=== PATIENT | male | born 1930 | race Caucasian/White ===

== ENCOUNTER 2016-05-12 07:30 | Emergency (ER) | payer MEDICARE, BC ==
[~2016-05-12] VITALS: Ht 167.6 cm; Wt 87.7 kg
[~2016-05-12 07:30] MED LIST: ALFUZOSIN HYDRO10 MG PO; LIPITOR 10MG10 MG PO; LISINOPRIL20 MG PO; PRILOSEC 20MG20 MG PO; UROXATRAL10 MG PO
[2016-05-12 07:31] VITALS: TEMP 96.8
[2016-05-12 07:50] LABS: HEMATOCRIT 46.2 % (42.0-52.0); HEMOGLOBIN 15.1 g/dl (13.5-18.0); MEAN CELL VOLUME 97 fl (80.0-100.0); MEAN CORPUSCULAR HEMOGLOBIN 32 pg (27.0-31.0); MEAN CORPUSCULAR HGB CONC 33 g/dl (33.0-37.0); PLATELET COUNT 514 K/mm3 (130-400); RED BLOOD COUNT 4.78 M/mm3 (4.20-5.60); REDCELL DISTRIBUTION WIDTH-CV 12.4 % (11.5-14.5)
[2016-05-12 07:51] LABS: INR 1.2 (0.8-3.0); PROTHROMBIN TIME 13.5 SECONDS (9.7-12.8)
[2016-05-12 07:54] LABS: PARTIAL THROMBOPLASTIN TIME 18.6 SECONDS (26.0-37.0)
[2016-05-12 07:57] LABS: ADD PATHOLOGY DIFF REVIEW NO; WHITE BLOOD COUNT 24.1 K/mm3 (4.8-10.8)
[2016-05-12 08:00] LABS: ADJUSTED CALCIUM 11.7 mg/dL (8.4-10.2); ALANINE AMINOTRANSFERASE 202 U/L (21-72); ALBUMIN 3.9 gm/dL (3.5-5.0); ALKALINE PHOSPHATASE 130 U/L (50-136); ANION GAP 17 mmol/L (7-16); BILIRUBIN,TOTAL 1.5 mg/dL (0.0-1.0); BLOOD UREA NITROGEN 50 mg/dL (9-20); CALCIUM 11.6 mg/dL (8.4-10.2); CARBON DIOXIDE 20 mmol/L (22-30); CHLORIDE 97 mmol/L (98-107); GLUCOSE 193 mg/dL (74-106); POTASSIUM 5.1 mmol/L (3.4-5.0); SODIUM 134 mmol/L (137-145); TOTAL PROTEIN 8.3 gm/dL (6.4-8.2)
[2016-05-12 08:01] LABS: ARTERIAL BLD GAS O2 SATURATION 95.1 % (92-100); ARTERIAL BLD GAS TCO2 CT 16.5; ARTERIAL BLOOD GAS BASE EXCESS -7.3 (-2-2); ARTERIAL BLOOD GAS HCO3 15.7 meq/L (22-26); ARTERIAL BLOOD GAS PO2 80.4 mmHg (80-100); ARTERIAL BLOOD GAS PO2T 80.4 (80-100); OXYHEMOGLOBIN 94.3 %
[2016-05-12 08:02] LABS: ATS? YES
[2016-05-12 08:12] LABS: B-TYPE NATRIURETIC PEPTIDE 735 pg/mL (0-450)
[2016-05-12 08:14] LABS: TROPONIN-I < 0.012 ng/mL (0.000-0.034)
[2016-05-12 08:35] LABS: BAND 6 % (0-10); EOSINOPHIL 1 % (0-4); METAMYELOCYTE 1 % (0-0); NEUTROPHILS 68 % (42.0-75.2); TOTAL CELLS COUNTED 102
[2016-05-12] MEDS ORDERED: PRINIVIL40 MG PO (08:40)
[2016-05-12] MEDS ORDERED: GLUCOPHAGE XR500 M1 PO (08:41)
[2016-05-12] MEDS ORDERED: TYLENOL 325MG325 MG PO (08:42)
[2016-05-12] MEDS ORDERED: ASPIRIN 81M81 MG/TA2 PO (08:42)
[2016-05-12] MEDS ORDERED: GLUCOPHAGE500 MG/TAB PO (09:04)
[2016-05-12] MEDS ORDERED: LIPITOR20 MG PO (09:05)
[2016-05-12 09:15] VITALS: BP 123/75; PULSE 72
== END 2016-05-12 09:42 | disposition short-term general hospital (02) ==
LOC: COL.ER 07:30
PROVIDERS: Emergency Medicine
DX: I21.19 ST elevation (STEMI) myocardial infarction involving other coronary artery of inferior wall (principal); I10 Essential (primary) hypertension; J18.9 Pneumonia, unspecified organism; Z66 Do not resuscitate
CPT/HCPCS: J1644; J2270; J2543; J3101; J7050

== ENCOUNTER → 2016-06-10 | Outpatient (REF) ==
[~2016-06-10] MED LIST changes: +ASPIRIN 81M81 MG/TA2 PO; +GLUCOPHAGE XR500 M1 PO; +GLUCOPHAGE500 MG/TAB PO; +LIPITOR20 MG PO; +PRINIVIL40 MG PO; +TYLENOL 325MG325 MG PO
[2016-06-10 16:03] LABS: BASO # 0.1 (0.0-0.2); BASO % 0.5 % (0.0-2.0); EOS # 0.4 (0.0-0.7); EOS % 4.3 % (0-4.0); GRAN # 6.8 (1.4-6.5); GRAN % 68.8 % (42.2-75.2); LYMPH # 1.7 (1.2-3.4); LYMPH % 16.8 % (20.0-51.0); MEAN CELL VOLUME 98 fl (80.0-100.0); MEAN CORPUSCULAR HGB CONC 31 g/dl (33.0-37.0); MEAN PLATELET VOLUME 9.7 fl (7.4-10.4); MONO # 0.9 (0.1-0.6); MONO % 8.9 % (1.7-9.3); PLATELET COUNT 363 K/mm3 (130-400); RED BLOOD COUNT 2.84 M/mm3 (4.20-5.60); REDCELL DISTRIBUTION WIDTH-CV 13.8 % (11.5-14.5); WHITE BLOOD COUNT 9.9 K/mm3 (4.8-10.8)
[2016-06-10 16:05] LABS: HEMATOCRIT 27.7 % (42.0-52.0); HEMOGLOBIN 8.7 g/dl (13.5-18.0); MEAN CORPUSCULAR HEMOGLOBIN 31 pg (27.0-31.0)
[2016-06-10 16:18] LABS: ADJUSTED CALCIUM 10.6 mg/dL (8.4-10.2); ALBUMIN 3.2 gm/dL (3.5-5.0); BILIRUBIN,TOTAL 0.8 mg/dL (0.0-1.0); CREATININE, serum 1.61 mg/dL (0.66-1.25); MAGNESIUM 1.9 mg/dL (1.6-2.3); POTASSIUM 4.4 mmol/L (3.4-5.0); TOTAL PROTEIN 6.3 gm/dL (6.4-8.2)
== END ==
LOC: ZCOL.LAB 15:59
PROVIDERS: Internal Medicine
DX: Z01.89 Encounter for other specified special examinations (principal)

== ENCOUNTER → 2017-03-16 | Outpatient (CLI) | payer MEDICARE, BC ==
[2017-03-16 16:59] LABS: BASO # 0.1 (0.0-0.2); BASO % 1.1 % (0.0-2.0); EOS # 0.7 (0.0-0.7); EOS % 7.1 % (0-4.0); GRAN # 6.2 (1.4-6.5); HEMATOCRIT 39.8 % (42.0-52.0); LYMPH # 2.3 (1.2-3.4); MEAN CELL VOLUME 95 fl (80.0-100.0); MEAN CORPUSCULAR HEMOGLOBIN 31 pg (27.0-31.0); MEAN CORPUSCULAR HGB CONC 33 g/dl (33.0-37.0); MEAN PLATELET VOLUME 9.3 fl (7.4-10.4); MONO # 0.9 (0.1-0.6); PLATELET COUNT 339 K/mm3 (130-400); RED BLOOD COUNT 4.21 M/mm3 (4.20-5.60); REDCELL DISTRIBUTION WIDTH-CV 13.1 % (11.5-14.5)
[2017-03-16 17:08] LABS: CALCIUM 11.3 mg/dL (8.4-10.2); CREATININE, serum 1.27 mg/dL (0.66-1.25); POTASSIUM 4.7 mmol/L (3.4-5.0)
[2017-03-16 17:30] LABS: ERYTHROCYTE SEDIMENTATION RATE 40 mm/hr (0-30)
== END ==
LOC: ZCOL.LAB 16:54
PROVIDERS: Nurse Practitioner Family
DX: E55.9 Vitamin D deficiency, unspecified (principal); R52 Pain, unspecified

== ENCOUNTER → 2017-03-24 | Outpatient (CLI) | payer MEDICARE, BC | LOC: COL.RAD 11:00 | DX: D35.1 Benign neoplasm of parathyroid gland (principal); E21.3 Hyperparathyroidism, unspecified | CPT/HCPCS: A9500 ==

== ENCOUNTER 2017-04-11 14:24 | Emergency (ER) | payer MEDICARE, BC ==
[~2017-04-11] VITALS: Ht 170.2 cm; Wt 88.6 kg
[2017-04-11 14:30] VITALS: TEMP 98.7
[2017-04-11] MEDS ORDERED: LASIX 20MG TABL20 MG PO (15:22)
[2017-04-11] MEDS ORDERED: CARDIZEM120 MG PO (15:22)
[2017-04-11] MEDS ORDERED: ELIQUIS 2.5 PO (15:23)
[2017-04-11] MEDS ORDERED: VITAMIN D31000 I1 PO (15:24)
[2017-04-11] MEDS ORDERED: LEVEMIR FLEX100 U/ML SQ (15:24)
[2017-04-11 16:00] LABS: BASO # 0.1 (0.0-0.2); BASO % 0.6 % (0.0-2.0); EOS # 0.5 (0.0-0.7); EOS % 4.6 % (0-4.0); GRAN # 7.5 (1.4-6.5); GRAN % 69.3 % (42.2-75.2); HEMATOCRIT 38.9 % (42.0-52.0); HEMOGLOBIN 12.8 g/dl (13.5-18.0); LYMPH # 1.7 (1.2-3.4); LYMPH % 15.8 % (20.0-51.0); MEAN CELL VOLUME 90 fl (80.0-100.0); MEAN CORPUSCULAR HEMOGLOBIN 30 pg (27.0-31.0); MEAN CORPUSCULAR HGB CONC 33 g/dl (33.0-37.0); MEAN PLATELET VOLUME 8.9 fl (7.4-10.4); MONO % 9.1 % (1.7-9.3); PLATELET COUNT 372 K/mm3 (130-400); RED BLOOD COUNT 4.31 M/mm3 (4.20-5.60)
[2017-04-11 16:14] LABS: BILIRUBIN,TOTAL 0.5 mg/dL (0.0-1.0); CALCIUM 10.8 mg/dL (8.4-10.2); CREATININE, serum 1.2 mg/dL (0.66-1.25); POTASSIUM 4.4 mmol/L (3.4-5.0); TOTAL PROTEIN 7.6 gm/dL (6.4-8.2)
[2017-04-11 16:21] LABS: PHOSPHOROUS 2.6 mg/dL (2.5-4.5)
[2017-04-11 17:08] VITALS: BP 141/87; PULSE 90
== END 2017-04-11 17:14 | disposition home or self-care (01) ==
LOC: COL.ER 14:24
PROVIDERS: Family Medicine
DX: E83.52 Hypercalcemia (principal); E21.3 Hyperparathyroidism, unspecified; Z79.82 Long term (current) use of aspirin; Z79.01 Long term (current) use of anticoagulants; Z79.4 Long term (current) use of insulin

== ENCOUNTER 2017-04-26 06:59 | Outpatient (CLI) | payer MEDICARE, BC ==
[~2017-04-26] VITALS: Ht 170.2 cm; Wt 84.0 kg
[2017-04-26] VITALS (16 sets, daily range): BP systolic 121–158; BP diastolic 65–96; PULSE 68–83
[~2017-04-26 06:59] MED LIST changes: +CARDIZEM120 MG PO; +ELIQUIS 2.5 PO; +LASIX 20MG TABL20 MG PO; +LEVEMIR FLEX100 U/ML SQ; +SENSIPAR30 MG PO; +VITAMIN D31000 I1 PO
== END 2017-04-26 11:16 | disposition home or self-care (01) ==
LOC: COL.RAD 06:59
DX: J93.9 Pneumothorax, unspecified (principal); R91.8 Other nonspecific abnormal finding of lung field; R91.1 Solitary pulmonary nodule

== ENCOUNTER 2017-05-23 05:39 | Day surgery (SDC) | payer MEDICARE, BC ==
[~2017-05-23] VITALS: Ht 167.6 cm; Wt 85.0 kg
[2017-05-23 06:24] VITALS: BP 155/63; PULSE 71; TEMP 98
[2017-05-23] MEDS ORDERED: VITAMIN B COMPL1 SGL PO (06:38)
[2017-05-23] MEDS ORDERED: ULTRAM 50MG TAB50 MG PO (06:39)
[2017-05-23] MEDS ORDERED: XARELTO15 MG PO (06:40)
[2017-05-23 08:25] VITALS: BP 118/57; PULSE 83; TEMP 97.2
[2017-05-23] MEDS ORDERED: PERCOCET 325 MG1 TA2 PO (08:29)
[2017-05-23] MEDS ORDERED: COLACE 100100 MG/CAP PO (08:29)
[2017-05-23 08:30] VITALS: BP 131/61; PULSE 82
[2017-05-23 08:45] VITALS: BP 105/63; PULSE 83
[2017-05-23 09:00] VITALS: BP 129/63; PULSE 85
[2017-05-23 09:15] VITALS: BP 136/67; PULSE 82
== END 2017-05-23 09:55 | disposition home or self-care (01) ==
LOC: SDCO 05:39
DX: C34.02 Malignant neoplasm of left main bronchus (principal); I10 Essential (primary) hypertension; E78.5 Hyperlipidemia, unspecified; E11.9 Type 2 diabetes mellitus without complications; Z79.4 Long term (current) use of insulin; Z79.01 Long term (current) use of anticoagulants; C79.9 Secondary malignant neoplasm of unspecified site
CPT/HCPCS: C1788; J0690; J1100; J1644; J2250; J2405; J2704; J3010; J7030

== ENCOUNTER → 2018-02-15 | Outpatient (CLI) | payer MEDICARE, BC ==
[~2018-02-15] MED LIST changes: +ALECENSA150 MG PO; +CARDIZEM CD 12120 MG PO; +COLACE 100100 MG/CAP PO; +D3-5050000 IU PO; +FOLIC ACID 11 MG/TA1 PO; +K-DUR 10 MEQ T10 MEQ PO; +KAYEXALATE15 GM/60 M PO; +LASIX 40MG TABL40 MG PO; +MELATONIN1 MG PO; +MIRALAX510G PO; +PERCOCET 325 MG1 TA2 PO; +ULTRAM 50MG TAB50 MG PO; +VITAMIN B COMPL1 SGL PO; +XARELTO15 MG PO; +ZAROXOLYN5 MG PO
== END ==
LOC: COL.RAD 08:27
DX: C34.12 Malignant neoplasm of upper lobe, left bronchus or lung (principal); C78.7 Secondary malignant neoplasm of liver and intrahepatic bile duct; C79.51 Secondary malignant neoplasm of bone; I70.0 Atherosclerosis of aorta; R59.0 Localized enlarged lymph nodes
CPT/HCPCS: Q9967

== ENCOUNTER 2018-03-03 10:08 | Emergency (ER) | payer MEDICARE, BC ==
[~2018-03-03] VITALS: Ht 167.6 cm; Wt 81.8 kg
[2018-03-03 10:13] VITALS: BP 147/70
[2018-03-03] MEDS ORDERED: MIRTAZAPINE7.5 MG PO (10:31)
[2018-03-03] MEDS ORDERED: OMNICEF 300MG300 MG PO (10:48)
[2018-03-03] MEDS ORDERED: DOXYCYCLINE 10100 MG PO (10:48)
[2018-03-03 11:20] VITALS: PULSE 79; TEMP 98.5
== END 2018-03-03 11:20 | disposition home or self-care (01) ==
LOC: COL.ER 10:08
DX: L03.90 Cellulitis, unspecified (principal); I48.91 Unspecified atrial fibrillation; Z79.4 Long term (current) use of insulin; Z79.82 Long term (current) use of aspirin; Z87.891 Personal history of nicotine dependence; Z79.01 Long term (current) use of anticoagulants
CPT/HCPCS: J0696

== ENCOUNTER → 2020-09-12 | Outpatient (CLI) | payer MEDICARE, BC ==
[~2020-09-12] MED LIST changes: +DOXYCYCLINE 10100 MG PO; +LEVAQUIN 750MG750 M1 PO; +MIRALAX PA17 GM/Dose PO; +MIRTAZAPINE7.5 MG PO; +OMNICEF 300MG300 MG PO; +PROTONIX 40MG T40 MG PO; +TOPROL XL 25MG25 MG PO; +ZAROXOLYN 2.52.5 MG PO; +ZYLOPRIM 300MG300 MG PO
== END ==
LOC: COL.VAS 11:15
DX: R60.0 Localized edema (principal)

== ENCOUNTER → 2020-10-01 | Outpatient (CLI) | payer MEDICARE, BC | LOC: COL.VAS 07:35 | DX: C34.12 Malignant neoplasm of upper lobe, left bronchus or lung (principal); M79.89 Other specified soft tissue disorders ==

== ENCOUNTER 2020-11-24 19:54 | Inpatient (IN) | payer MEDICARE, BC ==
[~2020-11-24] VITALS: Ht 172.7 cm; Wt 84.5 kg
[~2020-11-24 19:54] MED LIST changes: -LEVAQUIN 750MG750 M1 PO; -PROTONIX 40MG T40 MG PO; -TOPROL XL 25MG25 MG PO; -ZAROXOLYN 2.52.5 MG PO; -ZYLOPRIM 300MG300 MG PO
[2020-11-24 21:02] LABS: BASO # 0.1 (0.0-0.2); BASO % 0.4 % (0.0-2.0); EOS # 0.1 (0.0-0.7); EOS % 0.8 % (0-4.0); GRAN # 11.3 (1.4-6.5); GRAN % 87.5 % (42.2-75.2); HEMATOCRIT 39.1 % (42.0-52.0); HEMOGLOBIN 13.5 g/dl (13.5-18.0); LYMPH # 0.5 (1.2-3.4); LYMPH % 3.6 % (20.0-51.0); MEAN CELL VOLUME 98 fl (80.0-100.0); MEAN CORPUSCULAR HEMOGLOBIN 34 pg (27.0-31.0); MEAN CORPUSCULAR HGB CONC 35 g/dl (33.0-37.0); MEAN PLATELET VOLUME 9.7 fl (7.4-10.4); MONO # 0.9 (0.1-0.6); MONO % 6.9 % (1.7-9.3); PLATELET COUNT 204 K/mm3 (130-400); RED BLOOD COUNT 3.98 M/mm3 (4.20-5.60); REDCELL DISTRIBUTION WIDTH-CV 13.9 % (11.5-14.5)
[2020-11-24 21:21] LABS: ALBUMIN 3.8 gm/dL (3.4-4.8); BILIRUBIN,TOTAL 1.2 mg/dL (0.2-1.2); CALCIUM 11.1 mg/dL (8.4-10.2); CREATININE, serum 1.79 mg/dL (0.72-1.25); POTASSIUM 3.6 mmol/L (3.5-4.5); TOTAL PROTEIN 7.3 gm/dL (6.2-8.1)
[2020-11-25] MEDS ORDERED: PROTONIX 40MG T40 MG PO (00:43)
[2020-11-25] MEDS ORDERED: ZYLOPRIM 300MG300 MG PO (00:44)
[2020-11-25] MEDS ORDERED: GLUCOPHAGE500 MG/TAB PO (00:49)
[2020-11-25] MEDS ORDERED: TOPROL XL 25MG25 MG PO (00:54)
[2020-11-25 00:55] VITALS: BP 123/91; PULSE 99; TEMP 98.3
[2020-11-25] MEDS ORDERED: ZAROXOLYN 2.52.5 MG PO (00:55)
[2020-11-25 01:08] LABS: COLLECTION METHOD CLEAN CATCH
[2020-11-25 01:15] LABS: MUCOUS Present /lpf; PH 5 (5-8); SQUAMOUS EPITHELIAL 0-2 /hpf; URINE APPEARANCE Clear; URINE BACTERIA None Seen /hpf; URINE BILIRUBIN Negative (NEGATIVE); URINE BLOOD 2+ (NEGATIVE); URINE COLOR Yellow; URINE GLUCOSE 3+ (NEGATIVE); URINE KETONE 1+ (NEGATIVE); URINE LEUKOCYTE ESTERASE Negative (NEGATIVE); URINE NITRATE Negative (NEGATIVE); URINE PROTEIN(semi-quant) 1+ (NEGATIVE); URINE RBC 0-2 /hpf; URINE UROBILINOGEN Negative (NEGATIVE)
--- NOTE | 2020-11-25 02:22 | NUR ---
Vancomycin Initial Dosing Pharmacy Note Ordering provider: Laura Brooks MD Indication/duration: Sepsis 2nd to cellulitis and possible UTI Relevant comorbidities: DM2, HTN LABS: WBC = 13, SCr = 1.79 Recommendation: Will draw troughs and follow levels. Loading dose: 1.5 grams Maintenance dose: 1 gram every 24 hours Trough goal: 15-20 ug/mL
[2020-11-25 04:57] VITALS: BP 103/36; PULSE 78; TEMP 98.5
--- NOTE | 2020-11-25 05:44 | NUR ---
Patient received IV ABXs per orders. Has been incontinent of urine this shift. Pleasantly confused. Voices no questions, needs, or concerns at this time. Resting in bed with call light within reach.
[2020-11-25 06:36] LABS: BASO % 0.3 % (0.0-2.0); GRAN # 8.8 (1.4-6.5); GRAN % 86.2 % (42.2-75.2); LYMPH # 0.6 (1.2-3.4); LYMPH % 6.1 % (20.0-51.0); MEAN CELL VOLUME 100 fl (80.0-100.0); MEAN CORPUSCULAR HGB CONC 34 g/dl (33.0-37.0); MEAN PLATELET VOLUME 10.2 fl (7.4-10.4); MONO # 0.7 (0.1-0.6); MONO % 6.5 % (1.7-9.3); PLATELET COUNT 174 K/mm3 (130-400); RED BLOOD COUNT 3.11 M/mm3 (4.20-5.60)
[2020-11-25 06:43] LABS: HEMOGLOBIN 10.6 g/dl (13.5-18.0); MEAN CORPUSCULAR HEMOGLOBIN 34 pg (27.0-31.0)
[2020-11-25 06:58] LABS: CALCIUM 9.2 mg/dL (8.4-10.2); CREATININE, serum 1.37 mg/dL (0.72-1.25)
--- NOTE | 2020-11-25 07:18 | NUR ---
REPORT RECEIVED FROM PATTIE GALLARDO. PT ASLEEP IN BED. BREATHING REGULAR/UNLABORED. CALL WEISS IN REACH
[2020-11-25 07:44] VITALS: BP 129/50; PULSE 70; TEMP 98.3
--- NOTE | 2020-11-25 10:36 | NUR ---
Initial visit attempt; Patient occupied, Program Administrator left Prayer card so patient would know Program Administrator Services are available at our hospital.
[2020-11-25 13:11] VITALS: BP 105/61; PULSE 59; TEMP 98.6
--- NOTE | 2020-11-25 14:59 | NUR ---
Broom Bundler met with patient and patient's DPOA-HC, Bear to discuss discharge planning. Patient is from [facility] and sees Dr. Dugan for primary care. Patient has medications delivered from [facility] and has been using a front wheeled walker since a fall about three weeks ago. Prior to his fall, patient was using a cane. Patient reports he is normally independent with ADLS. Patient has Advance Directives in EMR which designate Gabriele Trevizo, Deon Norris and Shital Velasco as DPOA-HC. ROCIO reviewed PT recommendation for [facility]dan and patient would like a referral sent to [facility] (jourdan). ROCIO contacted Kate and faxed referral. Discharge Plan: [facility]
[2020-11-25 16:48] VITALS: BP 107/47; PULSE 54; TEMP 98.2
--- NOTE | 2020-11-25 18:34 | NUR ---
PT HAD UNEVENTFUL SHIFT. SLEEPING IN BED. BREATHING REG/UNLABORED CALL WEISS IN REACH
[2020-11-25 19:57] VITALS: BP 117/52; PULSE 55; TEMP 98
--- NOTE | 2020-11-25 20:56 | NUR ---
Patient assessed. More oriented today, but still has some confusion, but easily redirected. Denies having pain and discomfort at this time. Perpipheral IV to right AC with fluids running per orders. Abrasion to LLE. Decreased redness, warmth, and swelling noted to area. Continues on IV ABX per orders. Voices no questions, needs, or concerns at this time. Resting in bed with call light within reach.
[2020-11-26 00:23] VITALS: BP 129/50; PULSE 57; TEMP 98.1
[2020-11-26 04:04] VITALS: BP 110/66; PULSE 54; TEMP 98.4
--- NOTE | 2020-11-26 06:02 | NUR ---
Patient has been continent of bowel and bladder this shift. Denies pain and discomfort, except for stiffness to LLE. Voices no questions, needs, or concerns at this time. Resting in bed with call light within reach.
--- NOTE | 2020-11-26 07:00 | NUR ---
Report received from nightspaft, pt resint in bed, denies needs, will continue to monitor.
[2020-11-26 07:14] LABS: BASO % 0.6 % (0.0-2.0); EOS # 0.3 K/mm3 (0.0-0.7); EOS % 4.2 % (0-4.0); GRAN # 3.9 K/mm3 (1.4-6.5); GRAN % 60.8 % (42.2-75.2); HEMOGLOBIN 11.3 g/dl (13.5-18.0); LYMPH # 1.2 K/mm3 (1.2-3.4); LYMPH % 18.1 % (20.0-51.0); MEAN CELL VOLUME 102 fl (80.0-100.0); MEAN CORPUSCULAR HEMOGLOBIN 34 pg (27.0-31.0); MEAN CORPUSCULAR HGB CONC 33 g/dl (33.0-37.0); MEAN PLATELET VOLUME 10.3 fl (7.4-10.4); MONO % 15.1 % (1.7-9.3); PLATELET COUNT 178 K/mm3 (130-400); RED BLOOD COUNT 3.33 M/mm3 (4.20-5.60); REDCELL DISTRIBUTION WIDTH-CV 13.9 % (11.5-14.5)
[2020-11-26 07:19] LABS: HEMATOCRIT 34.1 % (42.0-52.0)
[2020-11-26 07:36] LABS: CALCIUM 9.3 mg/dL (8.4-10.2); CREATININE, serum 1.4 mg/dL (0.72-1.25); POTASSIUM 3.4 mmol/L (3.5-4.5)
[2020-11-26 08:08] VITALS: BP 117/51; PULSE 52; TEMP 97.7
--- NOTE | 2020-11-26 09:11 | NUR ---
Pt had been recieving ALECTINIB po which is an antineoplastic drug. This drug can be present in stool for up to 5 days post administration and chemotherapy precautionsshould be followed.
--- NOTE | 2020-11-26 11:02 | NUR ---
Assessment charted. Pt in bed resting after going to MRI of the head. Doing well, breakfast provided. Denies needs. LLE is reddenned and L foot has red area, per patient and family this is improving. Denies pain. IVF to RFA. WIll conitnue to monitor.
[2020-11-26 11:23] VITALS: BP 127/51; PULSE 58; TEMP 98
--- NOTE | 2020-11-26 13:54 | NUR ---
Carbonizer faxed clinical updates to Kate at [facility]. Kate inquired about patient's status with his cancer treatment, however did advise they plan to accept patient. ROCIO contacted PATTIE Daigle at [facility] and left a message. [facility]charge Plan[facility]
--- NOTE | 2020-11-26 14:56 | NUR ---
Engineering Mgr spoke with PATTIE Daigle at the [facility] who advised Dr. Andrews is fine with patient delaying treatment until patient is done with skilled care at [facility].
[2020-11-26 16:56] VITALS: BP 117/51; PULSE 55; TEMP 97.7
--- NOTE | 2020-11-26 18:19 | NUR ---
Pt has done well over shift. REstin in chair most of day, up to bathroom often with walker and SBA. Denies needs, will give report to nightshift nurse who will resume care.
[2020-11-26 20:00] VITALS: BP 117/58; PULSE 65; TEMP 98.3
--- NOTE | 2020-11-26 21:00 | NUR ---
Patient is resting in bed, alert and partially oriented, denies nausea or vomiting, assessment completed, meds provided, no further needs at this time. Call light within reach.
[2020-11-27] VITALS: BP 126/55; PULSE 62; TEMP 97.6
[2020-11-27 04:00] VITALS: BP 123/61; PULSE 59; TEMP 97.7
--- NOTE | 2020-11-27 06:48 | NUR ---
Patient was most of the night in the chair, he stated that is the way he sleeps at home. No further needs along the night. Shift report will be given to day nurse.
--- NOTE | 2020-11-27 07:27 | NUR ---
Patient resting in chair upon entry into room. Patient zenaida any pain, discomfort, SOA, or further needs at this time. Call light in reach.
[2020-11-27 07:51] LABS: MEAN CELL VOLUME 100 fl (80.0-100.0); MEAN CORPUSCULAR HEMOGLOBIN 34 pg (27.0-31.0); MEAN CORPUSCULAR HGB CONC 34 g/dl (33.0-37.0); MEAN PLATELET VOLUME 10.3 fl (7.4-10.4); PLATELET COUNT 213 K/mm3 (130-400); RED BLOOD COUNT 3.57 M/mm3 (4.20-5.60); REDCELL DISTRIBUTION WIDTH-CV 13.9 % (11.5-14.5)
[2020-11-27 07:54] LABS: HEMATOCRIT 35.8 % (42.0-52.0)
[2020-11-27 08:03] VITALS: BP 122/68; PULSE 61; TEMP 98.2
[2020-11-27 08:03] LABS: CALCIUM 9.7 mg/dL (8.4-10.2); CREATININE, serum 1.25 mg/dL (0.72-1.25); POTASSIUM 3.7 mmol/L (3.5-4.5)
[2020-11-27 08:43] LABS: BAND 3 % (0-10); EOSINOPHIL 3 % (0-4); LYMPHOCYTE 19 % (20.0-51.0); METAMYELOCYTE 1 % (0-0); NEUTROPHILS 65 % (42.0-75.2)
[2020-11-27 08:44] LABS: PLATELET ESTIMATE NORMAL (NORMAL)
[2020-11-27] MEDS ORDERED: LEVAQUIN 750MG750 M1 PO ×2 (09:06)
--- NOTE | 2020-11-27 10:18 | NUR ---
Scheduled medications given. Shift assessment completed. Patient C/O of diarrhea, upon assessment patient had a small yellow mucousy stool. Provider notified. Covid swab collected. Patient does state that he has a constant aching pain in his LLE. Patient repositined. PRN medications given. Patient will be discharging back to [facility] later this shift. Patient denies any further pain, discomfort, SOA, or needs at this time. Call light in reach. Chemo precautions in place.
[2020-11-27 11:05] VITALS: BP 122/68; PULSE 61; TEMP 98.2
--- NOTE | 2020-11-27 11:36 | NUR ---
Director Outcomes faxed clinical updates to Kate at [facility] who advised they can accept today. ROCIO collaborated with Kate to set discharge time for 1130. ROCIO provided transport time to RNBrooke. ROCIO met with patient to review discharge plan and he is in agreement. ROCIO also contacted patient's DPOA-HC, Bear to provide transport time. ROCIO then faxed discharge orders and negative COVID results to Kate at [facility]. Discharge Plan: [facility] today
--- NOTE | 2020-11-27 11:54 | NUR ---
Patient meets discharge criteria. IV DC'd catheter intact, no signs of phlebitis. VSS. Patient A&O. Patient denies any further pain, discomfort, or needs at this time. Report given to PATTIE Hansen at [facility]. Patient transported from the building by [facility] staff.
== END 2020-11-27 11:59 | DRG 871 ==
LOC: COL.ER 19:54 → MEDICAL 22:57
PROVIDERS: Family Medicine; Physician Assistant; Student in an Organized Health Care Education/Training Program; ADMIT Student in an Organized Health Care Education/Training Program
DX: A41.9 Sepsis, unspecified organism (principal); G93.41 Metabolic encephalopathy; L03.116 Cellulitis of left lower limb; I48.91 Unspecified atrial fibrillation; E11.9 Type 2 diabetes mellitus without complications; R32 Unspecified urinary incontinence; E11.22 Type 2 diabetes mellitus with diabetic chronic kidney disease; I12.9 Hypertensive chronic kidney disease with stage 1 through stage 4 chronic kidney disease, or unspecified chronic kidney disease; D64.9 Anemia, unspecified; M10.9 Gout, unspecified; N18.9 Chronic kidney disease, unspecified; Z66 Do not resuscitate; E87.6 Hypokalemia; K21.9 Gastro-esophageal reflux disease without esophagitis; Z87.891 Personal history of nicotine dependence; Z85.118 Personal history of other malignant neoplasm of bronchus and lung; Z85.830 Personal history of malignant neoplasm of bone
CPT/HCPCS: 99222-AI; 99232-AI; A9585; J0692; J0696; J1815; J2543; J3370; J7030; J7050